=== PATIENT | male | born 1955 | race Caucasian/White ===

== ENCOUNTER 2019-07-15 13:11 | Inpatient (IN) | payer OTHER ==
[~2019-07-15] VITALS: Ht 152.4 cm; Wt 80.4 kg
[2019-07-15] MEDS ORDERED: SODIUM CHLORIDE FLUSH 10ML SYR IVF ONE (14:00)
[2019-07-15] MEDS ORDERED: methylPREDNISolone SOD SUCC 125 MG/2 ML IV ONE (14:00)
[2019-07-15] MEDS ORDERED: ALBUTEROL/IPRATROPIUM 2.5MG/0.5MG, 3 ML NPPB SCH (14:00)
[2019-07-15] MEDS ORDERED: methylPREDNISolone SOD SUCC 125 MG/2 ML ONE (14:01)
[2019-07-15] MEDS ORDERED: LIDOCAINE 1%, 10ML ONE (14:03)
[2019-07-15] MEDS ORDERED: ALBUTEROL/IPRATROPIUM 2.5MG/0.5MG, 3 ML ONE (14:07)
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
[2019-07-15 14:37] LABS: BASOPHILS # (AUTO) 0.01 x10^3/uL (0-0.1); BASOPHILS % (AUTO) 0 % (0-1); EOSINOPHILS # (AUTO) 0.03 x10^3/uL (0-0.4); EOSINOPHILS % (AUTO) 1 % (1-7); LYMPHOCYTES # (AUTO) 0.54 x10^3/uL (1-3.4); LYMPHOCYTES % (AUTO) 13 % (22-44); MD NO; MEAN CORPUSCULAR HGB CONC 31.2 g/dL (33.2-36.2); MEAN CORPUSCULAR VOLUME 86.5 fL (81-97); MEAN PLATELET VOLUME 7.2 fL (7.4-10.4); MONOCYTES # (AUTO) 0.28 x10^3/uL (0.2-0.8); MONOCYTES % (AUTO) 7 % (2-9); NEUTROPHILS # (AUTO) 3.45 x10^3/uL (1.8-6.8); NEUTROPHILS % (AUTO) 80 % (42-75); PLATELET COUNT 197 x10^3/uL (130-400); RED BLOOD COUNT 3.26 x10^6/uL (4.38-5.82); RED CELL DISTRIBUTION WIDTH 18.8 % (9.4-14.8)
[2019-07-15 14:43] LABS: INTERNATIONAL NORMALIZED RATIO 1.4 (0.93-1.1); PROTHROMBIN TIME 14.9 Seconds (9.6-11.5)
[2019-07-15 14:46] LABS: ALANINE AMINOTRANSFERASE 9 U/L (12-78); ALBUMIN 2.7 g/dL (3.4-5.0); ANION GAP 7 mmol/L (5-15); CALCIUM 8.5 mg/dL (8.5-10.1); CHLORIDE 92 mmol/L (98-107)
[2019-07-15 14:50] LABS: ALKALINE PHOSPHATASE 186 U/L (45-117); BILIRUBIN,TOTAL 0.8 mg/dL (0.2-1.0); TROPONIN I < 0.015 ng/mL (0.000-0.045)
[2019-07-15] MEDS ORDERED: SPIRONOLACTONE 50 MG TABLET PO STA (14:51)
[2019-07-15] MEDS ORDERED: ISOS30TA8 PO (15:28)
[2019-07-15] MEDS ORDERED: NALO0.4D2 INH (15:28)
[2019-07-15] MEDS ORDERED: OMEP-110 PO (15:28)
[2019-07-15] MEDS ORDERED: LEVO50TA5 PO (15:28)
[2019-07-15] MEDS ORDERED: INSU100C SQ-INSULIN (15:28)
[2019-07-15] MEDS ORDERED: HYDR-3341 PO (15:28)
[2019-07-15] MEDS ORDERED: DEXT38GE2 PO (15:28)
[2019-07-15] MEDS ORDERED: IPRA12.9 INH (15:28)
[2019-07-15] MEDS ORDERED: ALBU18HF INH (15:35)
[2019-07-15] MEDS ORDERED: FURO20TA3 PO (15:35)
[2019-07-15] MEDS ORDERED: BUDE10.2 INH (15:35)
[2019-07-15] MEDS ORDERED: TRAZ50TA66 PO (15:35)
[2019-07-15] MEDS ORDERED: OXYC-307 PO (15:35)
[2019-07-15] MEDS ORDERED: CARV6.2512 PO (15:35)
[2019-07-15] MEDS ORDERED: PARI2CAP3 PO (15:35)
[2019-07-15] MEDS ORDERED: GABA300C10 PO (15:35)
[2019-07-15] MEDS ORDERED: ATOR20TA37 PO (15:35)
[2019-07-15] MEDS ORDERED: [UNRECOGNIZED DRUG - CODE] IV (15:35)
[2019-07-15] MEDS: HEPARIN 5,000 UNITS/ML, 1ML SQ SCH (16:30)
[2019-07-15] MEDS ORDERED: hydrALAzine 20 MG/ML, 1ML IVPush PRN (16:30)
[2019-07-15] MEDS ORDERED: PROMETHAZINE 25 MG/ML, 1ML IM PRN (16:30)
[2019-07-15] MEDS ORDERED: ONDANSETRON 2MG/ML, 2ML IVPush PRN (16:30)
[2019-07-15] MEDS ORDERED: LABETALOL 5MG/ML, 20ML IVPush PRN (16:30)
[2019-07-15] MEDS ORDERED: ALBUTEROL/IPRATROPIUM 2.5MG/0.5MG, 3 ML HHN SCH (16:30)
[2019-07-15] MEDS: INSULIN LISPRO 100 UNITS/ML, PEN SQ-INSULIN SCH ×2 (17:00→20:48)
[2019-07-15 17:23] LABS: CHOL/HDL RATIO 3.6
[2019-07-15] MEDS: GUAIFENESIN 200 MG TABLET PO SCH ×2 (18:41→20:24)
[2019-07-15 19:32] VITALS: BP 162/78
[2019-07-15] MEDS: ATORVASTATIN 20 MG TABLET PO SCH (20:24)
[2019-07-15] MEDS: CARVEDILOL 6.25 MG TABLET PO SCH (20:24)
[2019-07-15] MEDS: TRAZODONE 50MG TABLET PO SCH (20:27)
[2019-07-15] MEDS: ALBUTEROL/IPRATROPIUM 2.5MG/0.5MG, 3 ML NPPB SCH (20:41)
[2019-07-15] MEDS: BUDESONIDE 0.5 MG/2 ML INHA NPPB SCH (20:41)
[2019-07-15 21:41] LABS: RAPID INFLUENZA A Negative (Negative); RAPID INFLUENZA B Negative (Negative)
[2019-07-16] VITALS (7 sets, daily range): BP systolic 148–179; BP diastolic 68–83
[2019-07-16] MEDS: HEPARIN 5,000 UNITS/ML, 1ML SQ SCH ×4 (01:00→23:40)
[2019-07-16] MEDS: LEVOTHYROXINE 50 MCG TABLET PO SCH (05:29)
[2019-07-16] MEDS: GUAIFENESIN 200 MG TABLET PO SCH ×4 (05:29→21:29)
[2019-07-16 05:53] LABS: BASOPHILS # (AUTO) 0.01 x10^3/uL (0-0.1); BASOPHILS % (AUTO) 0 % (0-1); EOSINOPHILS % (AUTO) 0 % (1-7); LYMPHOCYTES # (AUTO) 0.39 x10^3/uL (1-3.4); LYMPHOCYTES % (AUTO) 11 % (22-44); MD NO; MEAN CORPUSCULAR HEMOGLOBIN 26.8 pg (27.5-34.5); MEAN CORPUSCULAR VOLUME 86.6 fL (81-97); MEAN PLATELET VOLUME 7.4 fL (7.4-10.4); MONOCYTES # (AUTO) 0.13 x10^3/uL (0.2-0.8); MONOCYTES % (AUTO) 4 % (2-9); NEUTROPHILS # (AUTO) 3.01 x10^3/uL (1.8-6.8); NEUTROPHILS % (AUTO) 85 % (42-75); PLATELET COUNT 196 x10^3/uL (130-400); RED BLOOD COUNT 3.43 x10^6/uL (4.38-5.82); RED CELL DISTRIBUTION WIDTH 18.7 % (9.4-14.8)
[2019-07-16 05:54] LABS: CHLORIDE 90 mmol/L (98-107)
[2019-07-16 06:13] LABS: ALANINE AMINOTRANSFERASE 12 U/L (12-78); ALBUMIN 2.5 g/dL (3.4-5.0); ALKALINE PHOSPHATASE 207 U/L (45-117); ANION GAP 11 mmol/L (5-15); BILIRUBIN,TOTAL 0.9 mg/dL (0.2-1.0); CALCIUM 8.2 mg/dL (8.5-10.1); CREATININE 4.77 mg/dL (0.7-1.3); TOTAL PROTEIN 8.6 g/dL (6.4-8.2)
[2019-07-16] MEDS: ALBUTEROL/IPRATROPIUM 2.5MG/0.5MG, 3 ML NPPB SCH ×3 (07:54→21:00)
[2019-07-16] MEDS: BUDESONIDE 0.5 MG/2 ML INHA NPPB SCH ×2 (07:54→21:00)
[2019-07-16] MEDS: INSULIN LISPRO 100 UNITS/ML, PEN SQ-INSULIN SCH ×4 (08:33→23:01)
[2019-07-16] MEDS: GABAPENTIN 100 MG CAPSULE PO SCH (08:33)
[2019-07-16] MEDS: FUROSEMIDE 20 MG TABLET PO SCH (08:34)
[2019-07-16] MEDS: ISOSORBIDE MONONITRATE ER 30 MG TABLET PO SCH (08:34)
[2019-07-16] MEDS: OMEPRAZOLE 20 MG CAPSULE.DR PO SCH (08:34)
[2019-07-16] MEDS: CARVEDILOL 6.25 MG TABLET PO SCH ×2 (08:34→21:29)
[2019-07-16] MEDS: OXYcodone/APAP 5/325MG TABLET PO PRN ×3 (09:40→23:45)
[2019-07-16] MEDS ORDERED: ARANESP 100 MCG/ML **ESRD SQ SCH (12:00)
[2019-07-16] MEDS ORDERED: OMNIPAQUE 350 MG/ML, 100ML BOTTLE ONE (12:11)
[2019-07-16] MEDS: TRAZODONE 50MG TABLET PO SCH (21:29)
[2019-07-16] MEDS: ATORVASTATIN 20 MG TABLET PO SCH (21:29)
[2019-07-17 01:46] VITALS: BP 150/74
[2019-07-17] MEDS: ALBUTEROL/IPRATROPIUM 2.5MG/0.5MG, 3 ML NPPB SCH ×4 (03:00→21:00)
[2019-07-17 05:40] VITALS: BP 154/78
[2019-07-17] MEDS: LEVOTHYROXINE 50 MCG TABLET PO SCH (06:00)
[2019-07-17] MEDS: GUAIFENESIN 200 MG TABLET PO SCH ×4 (06:00→21:22)
[2019-07-17 07:54] VITALS: BP 140/83
[2019-07-17] MEDS ORDERED: LIDOCAINE 1%, 10ML ONE ×2 (08:18)
[2019-07-17] MEDS: BUDESONIDE 0.5 MG/2 ML INHA NPPB SCH ×2 (08:59→21:00)
[2019-07-17] MEDS: CARVEDILOL 6.25 MG TABLET PO SCH ×2 (09:29→21:23)
[2019-07-17] MEDS: ISOSORBIDE MONONITRATE ER 30 MG TABLET PO SCH (09:29)
[2019-07-17] MEDS: OMEPRAZOLE 20 MG CAPSULE.DR PO SCH (09:30)
[2019-07-17] MEDS: GABAPENTIN 100 MG CAPSULE PO SCH (09:30)
[2019-07-17] MEDS: HEPARIN 5,000 UNITS/ML, 1ML SQ SCH ×3 (09:30→23:33)
[2019-07-17] MEDS: FUROSEMIDE 20 MG TABLET PO SCH (09:30)
[2019-07-17] MEDS: INSULIN LISPRO 100 UNITS/ML, PEN SQ-INSULIN SCH ×4 (09:32→21:22)
[2019-07-17] MEDS: OXYcodone/APAP 5/325MG TABLET PO PRN ×3 (10:04→21:23)
[2019-07-17 13:53] LABS: CELLS COUNTED 22
[2019-07-17 15:01] VITALS: BP 144/71
[2019-07-17 21:10] VITALS: BP 161/78
[2019-07-17] MEDS: TRAZODONE 50MG TABLET PO SCH (21:22)
[2019-07-17] MEDS: ATORVASTATIN 20 MG TABLET PO SCH (21:24)
[2019-07-18 01:59] VITALS: BP 154/73
[2019-07-18] MEDS: ALBUTEROL/IPRATROPIUM 2.5MG/0.5MG, 3 ML NPPB SCH ×3 (03:50→13:35)
[2019-07-18] MEDS: LEVOTHYROXINE 50 MCG TABLET PO SCH (05:44)
[2019-07-18] MEDS: GUAIFENESIN 200 MG TABLET PO SCH ×2 (05:44→10:50)
[2019-07-18 05:47] LABS: ALBUMIN 2.4 g/dL (3.4-5.0); ANION GAP 9 mmol/L (5-15); CALCIUM 8.2 mg/dL (8.5-10.1); CHLORIDE 95 mmol/L (98-107)
[2019-07-18 05:52] LABS: % IRON SATURATION 20 % (20-55); ALANINE AMINOTRANSFERASE 15 U/L (12-78); ALKALINE PHOSPHATASE 163 U/L (45-117); BILIRUBIN,TOTAL 0.7 mg/dL (0.2-1.0); CREATININE 2.86 mg/dL (0.7-1.3); IRON LEVEL 38 mcg/dL (65-175); TOTAL IRON BINDING CAPACITY 190 mcg/dL (250-450); TOTAL PROTEIN 7.9 g/dL (6.4-8.2)
[2019-07-18 05:55] LABS: BASOPHILS % (AUTO) 0 % (0-1); EOSINOPHILS % (AUTO) 0 % (1-7); LYMPHOCYTES # (AUTO) 0.52 x10^3/uL (1-3.4); LYMPHOCYTES % (AUTO) 8 % (22-44); MD NO; MEAN CORPUSCULAR HEMOGLOBIN 27.3 pg (27.5-34.5); MEAN CORPUSCULAR HGB CONC 31.8 g/dL (33.2-36.2); MEAN PLATELET VOLUME 7.4 fL (7.4-10.4); MONOCYTES # (AUTO) 0.39 x10^3/uL (0.2-0.8); MONOCYTES % (AUTO) 6 % (2-9); NEUTROPHILS # (AUTO) 5.93 x10^3/uL (1.8-6.8); NEUTROPHILS % (AUTO) 87 % (42-75); PLATELET COUNT 173 x10^3/uL (130-400); RED BLOOD COUNT 3.19 x10^6/uL (4.38-5.82); RED CELL DISTRIBUTION WIDTH 18.4 % (9.4-14.8)
[2019-07-18 06:56] VITALS: BP 161/84
[2019-07-18] MEDS: INSULIN LISPRO 100 UNITS/ML, PEN SQ-INSULIN SCH ×2 (07:00→11:14)
[2019-07-18] MEDS: HEPARIN 5,000 UNITS/ML, 1ML SQ SCH (07:50)
[2019-07-18] MEDS ORDERED: FUROSEMIDE 20 MG TABLET PO SCH (09:00)
[2019-07-18 10:45] VITALS: BP 131/76
[2019-07-18] MEDS: OMEPRAZOLE 20 MG CAPSULE.DR PO SCH (10:50)
[2019-07-18] MEDS: ISOSORBIDE MONONITRATE ER 30 MG TABLET PO SCH (10:50)
[2019-07-18] MEDS: CARVEDILOL 6.25 MG TABLET PO SCH (10:51)
[2019-07-18] MEDS: GABAPENTIN 100 MG CAPSULE PO SCH (10:51)
[2019-07-18] MEDS ORDERED: GUAI200T37 PO (10:54)
[2019-07-18] MEDS ORDERED: PRED10TA PO (10:54)
[2019-07-18] MEDS ORDERED: BUDE10.2 INH (10:54)
[2019-07-18] MEDS ORDERED: FURO20TA3 PO (10:54)
[2019-07-18] MEDS ORDERED: TIOT18CA INH (10:54)
[2019-07-18] MEDS: OXYcodone/APAP 5/325MG TABLET PO PRN (11:13)
== END 2019-07-18 14:12 | disposition home health service (06) | DRG 291 ==
LOC: ED 14:06 → EDIP 16:38 → 4WST 17:31
PROVIDERS: ADMIT Internal Medicine; ATTEND Internal Medicine
PROC: 5A1D70Z Performance of Urinary Filtration, Intermittent, Less than 6 Hours Per Day (ICD-10-PCS; principal; 2019-07-16)
PROC: 5A1D70Z Performance of Urinary Filtration, Intermittent, Less than 6 Hours Per Day (ICD-10-PCS; 2019-07-17)
PROC: 0W9G3ZZ Drainage of Peritoneal Cavity, Percutaneous Approach (ICD-10-PCS; 2019-07-17)
PROC: 0W993ZZ Drainage of Right Pleural Cavity, Percutaneous Approach (ICD-10-PCS; 2019-07-17)
DX: I13.2 Hypertensive heart and chronic kidney disease with heart failure and with stage 5 chronic kidney disease, or end stage renal disease (principal); E43 Unspecified severe protein-calorie malnutrition; J96.01 Acute respiratory failure with hypoxia; N18.6 End stage renal disease; I50.23 Acute on chronic systolic (congestive) heart failure; E87.1 Hypo-osmolality and hyponatremia; J44.1 Chronic obstructive pulmonary disease with (acute) exacerbation; J91.8 Pleural effusion in other conditions classified elsewhere; D63.1 Anemia in chronic kidney disease; D72.819 Decreased white blood cell count, unspecified; E03.9 Hypothyroidism, unspecified; E11.22 Type 2 diabetes mellitus with diabetic chronic kidney disease; E11.65 Type 2 diabetes mellitus with hyperglycemia; E78.5 Hyperlipidemia, unspecified; E86.1 Hypovolemia; F17.210 Nicotine dependence, cigarettes, uncomplicated; I25.10 Atherosclerotic heart disease of native coronary artery without angina pectoris; K70.31 Alcoholic cirrhosis of liver with ascites; Z89.512 Acquired absence of left leg below knee; Z68.34 Body mass index [BMI] 34.0-34.9, adult; Z89.511 Acquired absence of right leg below knee; Z99.2 Dependence on renal dialysis; Z95.1 Presence of aortocoronary bypass graft; Z89.611 Acquired absence of right leg above knee
CPT/HCPCS: 32555; 36415; 82945; 83986; 87400; 89051; 96374; 99291; J3490; J7620; J7626; 49083; 71045; 71260; 74177; 76705; 80053; 80061; 82306; 82378; 82728; 82962; 83036; 83540; 83550; 83605; 83615; 83880; 84100; 84157; 84443; 84484; 85025; 85610; 86304; 86705; 86706; 87040; 87070; 87205; 87340; 88112; 88305; 90935; 93005; 93306; 94640; G0378; J0882; J1644; Q9967; J1815; J2930; J7512